=== PATIENT | male | born 2000 | race Caucasian/White ===

== ENCOUNTER 2022-08-28 12:50 | Emergency (ER) | payer SELFPAY ==
[2022-08-28 13:00] VITALS: BP 143/78; PULSE 83; RESP 16; TEMP 36.7; O2SAT 99
--- NOTE | 2022-08-28 13:05 | ED.URI ---
HPI - URI/Sore Throat General Chief Complaint: Upper Respiratory Infection Stated Complaint: Sore Throat/Chills/Fever Time Seen by Provider: 08/28/22 13:00 History of Present Illness HPI Narrative: 22-year-old male presented for complaint of sore throat, head pressure, and fever. Onset yesterday. Endorses temperature up to 101 last night, painful swallow. Able to maintain secretions. He has taken DayQuil for symptoms today. Denies known sick contacts. Denies cough, shortness of breath, wheezing, nausea, vomiting, diarrhea. Related Data Allergies Allergy/AdvReac Type Severity Reaction Status Date / Time No Known Allergies Allergy Verified 08/28/22 13:00 Review of Systems Review of Systems: CONSTITUTIONAL: Denies body aches, chills, or sweats. EYES: Denies visual changes, redness, or discharge. ENT: Reports sore throat CARDIOVASCULAR: Denies chest pain, palpitations, or edema. RESPIRATORY: Denies dyspnea. GASTROINTESTINAL: Denies abdominal pain, nausea, vomiting, or diarrhea. SKIN: Denies rash, itching, or wounds. MUSCULOSKELETAL: Denies back pain, joint pain, or myalgia. FORMERLY [facility], 1928–1983 Past Medical History Medical History (Updated 08/28/22 @ 13:21 by Mayra Arnett, MOIRA) No pertinent past medical history Exam Narrative: GENERAL: mildly Ill-appearing, no acute distress. EYES: conjunctivae clear ENT: Mucous membranes moist. TM pearly shelton with normal light reflex bilaterally; no tragal tenderness. Oropharynx erythematous. Tonsils absent. No drooling, no hoarseness, no trismus, uvula midline. No tripod positioning, hot potato voice, or soft palate swelling. NECK: Supple. No lymphadenopathy CHEST: Clear to auscultation, breath sounds equal. No respiratory distress, speaks in full sentences. HEART: Regular rate and rhythm. No murmur heard. SKIN: Warm, dry, no rash. NEURO: Alert and oriented x3. Course Course Emergency Course: Patient is aware of diagnosis, understands and agrees to treatment plan. Anticipatory guidance given. Patient agrees to follow-up as directed and is aware of reasons to seek care at the emergency department. Portions of this record may have been created with voice recognition software Level of Care: Express Care Visit Vital Signs Vital signs: Vital Signs Temperature 98.1 F 08/28/22 13:00 Pulse Rate 83 08/28/22 13:00 Respiratory Rate 16 08/28/22 13:00 Blood Pressure 143/78 H 08/28/22 13:00 Pulse Oximetry 99 08/28/22 13:00 Oxygen Delivery Room Air 08/28/22 13:00 Temperature 98.1 F 08/28/22 13:00 Pulse Rate 83 08/28/22 13:00 Respiratory Rate 16 08/28/22 13:00 Blood Pressure 143/78 H 08/28/22 13:00 Pulse Oximetry 99 08/28/22 13:00 Oxygen Delivery Room Air 08/28/22 13:00 MDM - URI/Sore Throat MDM Narrative Medical decision making narrative: strep result reviewed with pt. Advise supportive treatments. Patient is appropriate for outpatient treatment and follow-up. Differential Diagnosis Differential diagnosis: Likely upper respiratory infection, viral infection and pharyngitis Discharge Plan Discharge Clinical Impression: Pharyngitis Qualifiers: Pharyngitis/tonsillitis etiology: unspecified etiology Qualified Code(s): J02.9 - Acute pharyngitis, unspecified Patient Disposition: Home, Self-Care Condition: Stable Instructions: Antibiotic Form Additional Instructions: Rapid strep swab was negative today You will be notified in a few days if the culture comes back positive for strep, and appropriate antibiotics will be called in at that time. if symptoms are due to a viral illness, it is not treated with antibiotics. Viral symptoms can be present for up to 10-14 days. Recommend Flonase spray and Zyrtec for sinus congestion Cough syrup may cause drowsiness; avoid driving or take it at night time. Tylenol every 8 hours as needed for pain/fever Soft foods, cool liquids, warm tea. Gargle with warm saltwater twice a day.
== END 2022-08-28 13:25 | disposition home or self-care (01) ==
PROVIDERS: Emergency Provider Nurse Practitioner Family
DX: J02.9 Acute pharyngitis, unspecified (principal); Z20.822 Contact with and (suspected) exposure to COVID-19
CPT/HCPCS: 87081; 87426; 87804; 87880; 99213; C9803; G0463